=== PATIENT | female | born 1995 | race Caucasian/White ===

== ENCOUNTER 2016-11-30 13:10 | Outpatient (CLI) | payer OTHER ==
[~2016-11-30] VITALS: Ht 157.5 cm; Wt 63.5 kg
[2016-11-30] MEDS ORDERED: IOHEXOL 50 ML IV ONE (13:22)
[2016-11-30] MEDS ORDERED: methylPREDNISolone ACETATE 80 MG/ML ONE (13:22)
[2016-11-30] MEDS ORDERED: NS 50 ML IV ONE (13:23)
[2016-11-30] MEDS ORDERED: LIDOCAINE 1%, 20 ML MDV 20 ML ONE (13:23)
== END 2016-11-30 20:00 | disposition home or self-care (01) ==
LOC: SRD 13:10
DX: M25.551 Pain in right hip (principal)
CPT/HCPCS: 73525; J1040; J2001; Q9967